=== PATIENT | male | born 1965 | race Caucasian/White ===

== ENCOUNTER 2016-11-12 16:50 | Emergency (ER) | payer SELFPAY ==
[~2016-11-12] VITALS: Ht 170.2 cm; Wt 81.8 kg
[~2016-11-12 16:50] MED LIST: VICOT PO
[2016-11-12 18:16] LABS: BASOPHILS % (AUTO) 0.2 % (0.0-2.0); EOSINOPHILS % (AUTO) 0.1 % (1.0-6.0); HEMATOCRIT 44.8 % (41-53); HEMOGLOBIN 15.3 g/dL (13.5-17.5); LYMPHOCYTES # (AUTO) 0.7 K/uL (1.0-4.8); LYMPHOCYTES % (AUTO) 3.8 % (22.0-44.0); MEAN CORPUSCULAR HEMOGLOBIN 31.4 pg (26.0-34.0); MEAN CORPUSCULAR HGB CONC 34.1 G/dL (31.0-37.0); MEAN CORPUSCULAR VOLUME 92 fL (80-100); MONOCYTES # (AUTO) 0.3 K/uL (0.1-1.0); MONOCYTES % (AUTO) 1.8 % (2.0-9.0); NEUTROPHILS # (AUTO) 16.1 K/uL (1.8-7.7); PLATELET COUNT (AUTO) 291 K/uL (150-450); RED BLOOD CELL COUNT(AUTO) 4.87 MIL/uL (4.50-5.90); RED CELL DISTRIBUTION WIDTH 13.3 % (11.5-14.5); WHITE BLOOD COUNT (AUTO) 17.2 K/uL (4.5-11.0)
[2016-11-12 18:17] LABS: NEUTROPHILS % (AUTO) 94.1 % (40.0-70.0)
[2016-11-12 18:30] LABS: CALCIUM, TOTAL 9.8 mg/dL (8.8-10.5); CREATININE 1.54 mg/dL (0.60-1.30); POTASSIUM 4.1 mmol/L (3.5-5.1)
[2016-11-12 18:30] LABS: APPEARANCE,URINE CLEAR (CLEAR); GLUCOSE, URINE (UA) NEGATIVE (NEGATIVE); KETONES,URINE >=80 mg/dL (NEGATIVE); LEUKOCYTE ESTERASE ,URINE NEGATIVE (NEGATIVE); OCCULT BLOOD,URINE LARGE (NEGATIVE); PH,URINE 5.5 (5.0-8.0); PROTEIN,URINE TRACE (NEGATIVE)
[2016-11-12 18:32] LABS: ADD UA MICROSCOPIC YES
[2016-11-12 18:33] LABS: ALBUMIN 4.3 g/dL (3.4-5.0); BILIRUBIN,TOTAL 0.9 mg/dL (0.1-1.0); TOTAL PROTEIN, SERUM 7.6 g/dL (6.4-8.2)
[2016-11-12 18:38] LABS: SQUAMOUS EPITHELIAL CELL,UR Rare /LPF (None Seen)
[2016-11-12] MEDS ORDERED: IOVERSOL 320 MG/ML 100 ML VIAL ONE (18:59)
[2016-11-12] MEDS ORDERED: SODIUM CHLORIDE 0.9% 100 ML ONE (18:59)
[2016-11-12] MEDS ORDERED: KETOROLAC TROMETHAMINE 30 MG/ML VIAL IVP ONE (19:00)
[2016-11-12] MEDS ORDERED: ONDANSETRON HCL 4 MG/2 ML VIAL IVP ONE (19:00)
[2016-11-12] MEDS ORDERED: BARIUM SULFATE 0.1% SUSPENSION 450 ML BOTTLE PO ONE (19:00)
[2016-11-12] MEDS ORDERED: SODIUM CHLORIDE 0.9% 1,000 ML IV ONE (19:00)
[2016-11-12] MEDS ORDERED: TAMSULOSIN HCL 0.4 MG CAPSULE PO ONE (21:45)
[2016-11-12] MEDS ORDERED: LEVOFLOXACIN 500 MG/D5% WATER 100 ML IV ONE (22:00)
[2016-11-12 23:02] VITALS: BP 129/76
== END 2016-11-12 23:05 | disposition home or self-care (01) ==
LOC: EMS 16:52
DX: N20.9 Urinary calculus, unspecified (principal); F15.90 Other stimulant use, unspecified, uncomplicated; F17.200 Nicotine dependence, unspecified, uncomplicated
CPT/HCPCS: 36415; 74177; 80053; 81001; 83690; 85025; 96361; 96365; 96375; 99285; J1885; J1956; J2405; J7030; J7050; Q9967; Z7610

== ENCOUNTER 2020-08-25 07:08 | Emergency (ER) | payer MEDICAID, OTHER ==
[~2020-08-25] VITALS: Ht 175.3 cm; Wt 95.5 kg
[2020-08-25 07:19] VITALS: BP 141/87
[2020-08-25] MEDS ORDERED: IBUPROFEN 600 MG TABLET PO ONE (07:45)
[2020-08-25] MEDS ORDERED: ACETAMINOPHEN 500 MG TABLET PO ONE (07:45)
== END 2020-08-25 10:27 | disposition home or self-care (01) ==
LOC: EMS 07:10
DX: S76.812A Strain of other specified muscles, fascia and tendons at thigh level, left thigh, initial encounter (principal); W19.XXXA Unspecified fall, initial encounter; Y93.89 Activity, other specified; Y92.89 Other specified places as the place of occurrence of the external cause; Y99.8 Other external cause status
CPT/HCPCS: 99283

== ENCOUNTER 2023-05-27 06:50 | Emergency (ER) | payer SELFPAY ==
[~2023-05-27] VITALS: Ht 175.3 cm; Wt 95.5 kg
[2023-05-27 07:09] VITALS: BP 149/94; PULSE 84; RESP 20; TEMP 98.4
[2023-05-27] MEDS: FLUORESCEIN SODIUM 1 MG STRIP OD ONE (08:10)
== END 2023-05-27 08:35 | disposition home or self-care (01) ==
LOC: EMS 06:51
DX: S05.90XA Unspecified injury of unspecified eye and orbit, initial encounter (principal); F15.90 Other stimulant use, unspecified, uncomplicated; X58.XXXA Exposure to other specified factors, initial encounter; Y93.89 Activity, other specified; Y92.89 Other specified places as the place of occurrence of the external cause; Y99.8 Other external cause status
CPT/HCPCS: 99282; Z7502; Z7610